=== PATIENT | female | born 1945 | race Caucasian/White ===

== ENCOUNTER → 2018-12-07 | Outpatient (CLI) | payer MEDICARE ==
[~2018-12-07] MED LIST: OMNIPAQUE 350 MG/ML, 150 ML BOTTLE ONE; VISIPAQUE 270 MG/ML, 50ML BOTTLE ONE
[2018-12-07 10:09] LABS: CREATININE 0.87 mg/dL (0.55-1.02)
== END | disposition home or self-care (01) ==
LOC: CVU 08:49
PROVIDERS: ATTEND Internal Medicine Cardiovascular Disease
DX: Z45.2 Encounter for adjustment and management of vascular access device (principal); I35.0 Nonrheumatic aortic (valve) stenosis; I25.10 Atherosclerotic heart disease of native coronary artery without angina pectoris; I10 Essential (primary) hypertension; E78.5 Hyperlipidemia, unspecified; I48.0 Paroxysmal atrial fibrillation; Z79.899 Other long term (current) drug therapy; Z72.89 Other problems related to lifestyle
CPT/HCPCS: 36415; 36573; 71275; 74174; 82565; 93880; 94060; 94726; 94729; C1751; Q9966; Q9967

== ENCOUNTER → 2018-12-16 | Day surgery (SDC) | payer MEDICARE ==
[~2018-12-16] VITALS: Ht 162.6 cm; Wt 66.4 kg
[~2018-12-16] MED LIST changes: +ACET500T76 PO; +CARV3.1212 PO; +CLOP75TA PO; +CLOPIDOGREL 75 MG TABLET PO ONE; +CYCL-259 PO; +FENTANYL PF 100 MCG/2ML ONE; +HEPARIN 1,000 UNITS/ML, 10ML ONE; +ISOS30TA8 PO; +LIDOCAINE-MPF 1%, 5ML ONE; +MIDAZOLAM 1 MG/ML, 2ML ONE; +MULT-790 PO; -OMNIPAQUE 350 MG/ML, 150 ML BOTTLE ONE; +PANT40TA5 PO; +QUET25TA7 PO; +ROSU5TAB PO; +SODIUM CHLORIDE 0.9% 1,000 ML IV ONE; +SODIUM CHLORIDE 0.9% 1,000 ML IV SCH; +TRIA5PAS10 TP; +VENL150C6 PO; +VERAPAMIL 2.5 MG/ML, 2ML ONE; -VISIPAQUE 270 MG/ML, 50ML BOTTLE ONE
[2018-12-16 13:42] VITALS: BP 80/58
[2018-12-16 14:00] LABS: BASOPHILS # (AUTO) 0.04 x10^3/uL (0-0.1); BASOPHILS % (AUTO) 1 % (0-1); EOSINOPHILS # (AUTO) 0.15 x10^3/uL (0-0.4); EOSINOPHILS % (AUTO) 2 % (1-7); LYMPHOCYTES # (AUTO) 2.37 x10^3/uL (1-3.4); LYMPHOCYTES % (AUTO) 33 % (22-44); MD NO; MEAN CORPUSCULAR HEMOGLOBIN 30.6 pg (27.0-34.8); MEAN CORPUSCULAR HGB CONC 32.6 g/dL (32.4-35.8); MEAN CORPUSCULAR VOLUME 93.9 fL (80-100); MEAN PLATELET VOLUME 6.7 fL (7.4-10.4); MONOCYTES # (AUTO) 0.55 x10^3/uL (0.2-0.8); MONOCYTES % (AUTO) 8 % (2-9); NEUTROPHILS # (AUTO) 4.01 x10^3/uL (1.8-6.8); NEUTROPHILS % (AUTO) 56 % (42-75); PLATELET COUNT 327 x10^3/uL (130-400); RED BLOOD COUNT 4.03 x10^6/uL (3.82-5.3); RED CELL DISTRIBUTION WIDTH 15.3 % (9.6-15.2)
[2018-12-16 14:11] LABS: ANION GAP 7 mmol/L (5-15); CALCIUM 9.1 mg/dL (8.5-10.1); CHLORIDE 108 mmol/L (98-107); CREATININE 0.86 mg/dL (0.55-1.02)
== END | disposition home or self-care (01) ==
LOC: CACL 12:22
PROVIDERS: ATTEND Internal Medicine Cardiovascular Disease
DX: I25.10 Atherosclerotic heart disease of native coronary artery without angina pectoris (principal); I35.0 Nonrheumatic aortic (valve) stenosis; I10 Essential (primary) hypertension; E78.5 Hyperlipidemia, unspecified; I48.0 Paroxysmal atrial fibrillation; Z79.01 Long term (current) use of anticoagulants; Z79.899 Other long term (current) drug therapy; Z79.02 Long term (current) use of antithrombotics/antiplatelets; Z88.8 Allergy status to other drugs, medicaments and biological substances; Z95.5 Presence of coronary angioplasty implant and graft
CPT/HCPCS: 36415; 80048; 85025; 93454; 99156; C1769; C1894; J1644; J2250; J3010; Q9967

== ENCOUNTER 2018-12-27 06:09 | Inpatient (IN) | payer MEDICARE, OTHER ==
[~2018-12-27] VITALS: Ht 162.6 cm; Wt 69.4 kg
[~2018-12-27 06:09] MED LIST changes: -CLOPIDOGREL 75 MG TABLET PO ONE; -FENTANYL PF 100 MCG/2ML ONE; -HEPARIN 1,000 UNITS/ML, 10ML ONE; -LIDOCAINE-MPF 1%, 5ML ONE; -MIDAZOLAM 1 MG/ML, 2ML ONE; -SODIUM CHLORIDE 0.9% 1,000 ML IV ONE; -SODIUM CHLORIDE 0.9% 1,000 ML IV SCH; -VERAPAMIL 2.5 MG/ML, 2ML ONE
[2018-12-27] MEDS ORDERED: SODIUM CHLORIDE 0.9% 1,000 ML IV ONE (06:19)
[2018-12-27] MEDS ORDERED: ONDANSETRON 2MG/ML, 2ML IVPush PRN (06:30)
[2018-12-27] MEDS ORDERED: CHLORHEXIDINE 15 ML UDC MM PRN (06:30)
[2018-12-27 06:44] VITALS: BP 87/58
[2018-12-27 06:58] LABS: BASOPHILS # (AUTO) 0.04 x10^3/uL (0-0.1); BASOPHILS % (AUTO) 1 % (0-1); EOSINOPHILS % (AUTO) 3 % (1-7); LYMPHOCYTES # (AUTO) 2.77 x10^3/uL (1-3.4); LYMPHOCYTES % (AUTO) 44 % (22-44); MD NO; MEAN CORPUSCULAR HGB CONC 33.3 g/dL (32.4-35.8); MEAN CORPUSCULAR VOLUME 96.1 fL (80-100); MONOCYTES # (AUTO) 0.54 x10^3/uL (0.2-0.8); MONOCYTES % (AUTO) 9 % (2-9); NEUTROPHILS # (AUTO) 2.83 x10^3/uL (1.8-6.8); NEUTROPHILS % (AUTO) 44 % (42-75); PLATELET COUNT 351 x10^3/uL (130-400); RED BLOOD COUNT 3.84 x10^6/uL (3.82-5.3); RED CELL DISTRIBUTION WIDTH 15.7 % (9.6-15.2)
[2018-12-27 07:08] LABS: ALANINE AMINOTRANSFERASE 26 U/L (12-78); ALBUMIN 3.6 g/dL (3.4-5.0); ANION GAP 7 mmol/L (5-15); CALCIUM 9.1 mg/dL (8.5-10.1); CHLORIDE 108 mmol/L (98-107); CREATININE 1.04 mg/dL (0.55-1.02)
[2018-12-27 07:10] LABS: ALKALINE PHOSPHATASE 70 U/L (45-117); BILIRUBIN,TOTAL 0.3 mg/dL (0.2-1.0); TOTAL PROTEIN 7.3 g/dL (6.4-8.2)
[2018-12-27 07:12] LABS: INTERNATIONAL NORMALIZED RATIO 0.98 (0.93-1.1); PROTHROMBIN TIME 10.3 Seconds (9.6-11.5)
[2018-12-27] MEDS ORDERED: FENTANYL PF 250 MCG/5ML ONE (07:14)
[2018-12-27] MEDS ORDERED: PHENYLEPHRINE 10 MG/ML ONE (07:15)
[2018-12-27] MEDS ORDERED: SUCCINYLCHOLINE 20 MG/ML, 10ML ONE (07:23)
[2018-12-27] MEDS ORDERED: PROPOFOL 10 MG/ML, 20ML ONE (07:23)
[2018-12-27] MEDS ORDERED: HEPARIN 1,000 UNITS/ML, 30ML ONE (08:26)
[2018-12-27] MEDS ORDERED: ONDANSETRON 2MG/ML, 2ML ONE ×2 (08:26)
[2018-12-27] MEDS ORDERED: DEXAMETHASONE 4 MG/ML, 1ML ONE ×2 (08:26)
[2018-12-27] MEDS ORDERED: PROTAMINE SULFATE 10 MG/ML, 25ML ONE (08:50)
[2018-12-27] MEDS ORDERED: MULTIVITAMINS/MINERALS TABLET PO SCH ×2 (09:00→09:47)
[2018-12-27] MEDS ORDERED: CYCLOBENZAPRINE 10 MG TABLET PO PRN (09:00)
[2018-12-27] MEDS ORDERED: QUETIAPINE 25MG TABLET PO SCH ×2 (09:00→21:00)
[2018-12-27] MEDS ORDERED: LABETALOL 20 MG/4 ML IVPush PRN (09:30)
[2018-12-27] MEDS ORDERED: CLOPIDOGREL 75 MG TABLET PO SCH (09:30)
[2018-12-27] MEDS ORDERED: hydrALAzine 20 MG/ML, 1ML IVPush PRN (09:30)
[2018-12-27] MEDS: ACETAMINOPHEN 325 MG TABLET PO PRN ×2 (10:40→19:47)
[2018-12-27] MEDS: CARVEDILOL 12.5 MG TABLET PO SCH ×2 (10:45→21:12)
[2018-12-27] MEDS: CLOPIDOGREL 75 MG TABLET PO SCH (10:45)
[2018-12-27] MEDS: PANTOPROZOLE 40MG TABLET PO SCH (10:45)
[2018-12-27] MEDS: VENLAFAXINE XR 37.5MG CAP.ER.24H PO SCH (10:45)
[2018-12-27] MEDS: ISOSORBIDE MONONITRATE ER 30 MG TABLET PO SCH (10:45)
[2018-12-27] MEDS: ASPIRIN 81 MG TABLET EC PO SCH (11:07)
[2018-12-27 11:11] VITALS: BP 141/85
[2018-12-27] MEDS ORDERED: CLOPIDOGREL 75 MG TABLET PO ONE (12:00)
[2018-12-27 12:17] VITALS: BP 128/72
[2018-12-27 19:24] VITALS: BP 124/79
[2018-12-27 21:11] VITALS: BP 126/79
[2018-12-28 00:37] VITALS: BP 128/97
[2018-12-28 05:44] LABS: BASOPHILS # (AUTO) 0.02 x10^3/uL (0-0.1); BASOPHILS % (AUTO) 0 % (0-1); EOSINOPHILS % (AUTO) 0 % (1-7); LYMPHOCYTES % (AUTO) 16 % (22-44); MD NO; MEAN CORPUSCULAR HGB CONC 32.3 g/dL (32.4-35.8); MEAN CORPUSCULAR VOLUME 96.1 fL (80-100); MEAN PLATELET VOLUME 7.1 fL (7.4-10.4); MONOCYTES # (AUTO) 0.83 x10^3/uL (0.2-0.8); MONOCYTES % (AUTO) 8 % (2-9); NEUTROPHILS # (AUTO) 7.44 x10^3/uL (1.8-6.8); NEUTROPHILS % (AUTO) 75 % (42-75); PLATELET COUNT 245 x10^3/uL (130-400); RED BLOOD COUNT 3.21 x10^6/uL (3.82-5.3); RED CELL DISTRIBUTION WIDTH 15.7 % (9.6-15.2)
[2018-12-28 05:55] LABS: CHLORIDE 106 mmol/L (98-107)
[2018-12-28 06:01] LABS: ANION GAP 7 mmol/L (5-15); CALCIUM 8.7 mg/dL (8.5-10.1); CREATININE 0.72 mg/dL (0.55-1.02)
[2018-12-28 07:50] VITALS: BP 142/62
[2018-12-28] MEDS ORDERED: ASPI81TA45 PO (09:12)
[2018-12-28] MEDS: PANTOPROZOLE 40MG TABLET PO SCH (09:44)
[2018-12-28] MEDS: ISOSORBIDE MONONITRATE ER 30 MG TABLET PO SCH (09:44)
[2018-12-28] MEDS: CLOPIDOGREL 75 MG TABLET PO SCH (09:44)
[2018-12-28] MEDS: VENLAFAXINE XR 37.5MG CAP.ER.24H PO SCH (09:45)
[2018-12-28] MEDS: ASPIRIN 81 MG TABLET EC PO SCH (09:45)
[2018-12-28] MEDS: CARVEDILOL 12.5 MG TABLET PO SCH (09:45)
[2018-12-28 12:19] VITALS: BP 136/87
[2018-12-28] MEDS ORDERED: DOCUSATE 100 MG CAPSULE PO ONE (13:00)
[2018-12-28 14:06] VITALS: BP 113/78
[2018-12-28 19:24] VITALS: BP 145/97
[2019-02-18] MEDS ORDERED: QUET25TA5 PO (10:20)
== END 2018-12-28 20:07 | disposition home or self-care (01) | DRG 266 ==
LOC: ORIP 06:09 → CCU 09:23 → 5SO 10:33
PROVIDERS: ADMIT Internal Medicine Cardiovascular Disease; ATTEND Internal Medicine Cardiovascular Disease
PROC: 02RF38Z Replacement of Aortic Valve with Zooplastic Tissue, Percutaneous Approach (ICD-10-PCS; 2018-12-27)
PROC: 03HY32Z Insertion of Monitoring Device into Upper Artery, Percutaneous Approach (ICD-10-PCS; 2018-12-27)
PROC: B246ZZ4 Ultrasonography of Right and Left Heart, Transesophageal (ICD-10-PCS; principal; 2018-12-27 08:00)
DX: I35.0 Nonrheumatic aortic (valve) stenosis (principal); I50.33 Acute on chronic diastolic (congestive) heart failure; D68.69 Other thrombophilia; I25.10 Atherosclerotic heart disease of native coronary artery without angina pectoris; I11.0 Hypertensive heart disease with heart failure; E78.5 Hyperlipidemia, unspecified; I48.0 Paroxysmal atrial fibrillation; K44.9 Diaphragmatic hernia without obstruction or gangrene; R09.02 Hypoxemia; Z00.6 Encounter for examination for normal comparison and control in clinical research program; Z88.8 Allergy status to other drugs, medicaments and biological substances; Z91.048 Other nonmedicinal substance allergy status; Z95.5 Presence of coronary angioplasty implant and graft
CPT/HCPCS: 33361; 36415; 71045; 80048; 80053; 85025; 85347; 85610; 85730; 86850; 86900; 86923; 87081; 93005; 93306; 93312; 93321; 93325; 93355; C1760; C1769; C1894; G0378; J1100; J1644; J2405; J2704; J2720; J3010; J0330; J0360; J2370; Q9967